=== PATIENT | male | born 1975 | race Caucasian/White ===

== ENCOUNTER 2016-10-04 00:38 | Emergency (ER) | payer BC ==
[2016-10-04] MEDS ORDERED: VALACYCLOVIR HCL 500 MG TABLET PO ONE (02:03)
[2016-10-04] MEDS ORDERED: HYDROCODONE/ACETAMINOPHEN 5-325 MG 6 TAB/DSPK PO PRN (02:03)
--- NOTE | 2016-10-04 02:05 | ER Document Report ---
ED Skin Rash/Insect Bite/Abscs - General Chief Complaint: Rash Stated Complaint: ABDOMINAL/BACK PAIN Time seen by provider: 02:04 Mode of Arrival: Ambulatory Information source: Patient TRAVEL OUTSIDE OF THE [place] IN LAST 30 DAYS: No - HPI Patient complains to provider of: Skin rash/lesion Onset: Yesterday Onset/Duration: Persistent, Worse Quality of pain: Achy, Burning Severity: Mild Pain Level: 2 Skin Character: Erythema, Rash, Vesicular Quality of rash: Painful Identify cause: No Exacerbated by: Denies Relieved by: Denies Similar symptoms previously: No Recently seen / treated by doctor: Yes Notes: Patient is a 41-year-old male with a history of diabetes and high cholesterol who presents to the emergency room complaining of painful erythematous blistering rash to his left abdomen and left back, reports feeling achy pain in the area a few days ago, was actually seen by his primary care provider and diagnosed with a throat infection recently, was started on a Z-Higinio, his diabetes medication was changed to glipizide as well, today he noticed that the rash is blistering, he reports some mild achy pain with that as well, he denies any fevers today, no drainage or discharge, patient admits to having chickenpox as a child Past Medical History - General Information source: Patient - Social History Smoking Status: Never Smoker Chew tobacco use (# tins/day): No Frequency of alcohol use: None Drug Abuse: None Family History: Reviewed & Not Pertinent Patient has suicidal ideation: No Patient has homicidal ideation: No Renal/ Medical History: Denies: Hx Peritoneal Dialysis Review of Systems - Review of Systems Constitutional: No symptoms reported EENT: No symptoms reported Cardiovascular: No symptoms reported Respiratory: No symptoms reported Gastrointestinal: No symptoms reported Genitourinary: No symptoms reported Male Genitourinary: No symptoms reported Musculoskeletal: No symptoms reported Skin: See HPI, Rash Hematologic/Lymphatic: No symptoms reported Neurological/Psychological: No symptoms reported -: Yes All other systems reviewed and negative Physical Exam - Vital signs Vitals: Temp Pulse Resp BP Pulse Ox 97.7 F 85 18 132/79 H 99 10/04/16 00:51 10/04/16 00:51 10/04/16 00:51 10/04/16 00:51 10/04/16 00:51 Interpretation: Normal - General General appearance: Appears well, Alert - HEENT Head: Normocephalic, Atraumatic Eyes: Normal Pupils: PERRL - Respiratory Respiratory status: No respiratory distress Chest status: Nontender Breath sounds: Normal Chest palpation: Normal - Cardiovascular Rhythm: Regular Heart sounds: Normal auscultation Murmur: No - Abdominal Inspection: Normal Distension: No distension Bowel sounds: Normal Tenderness: Nontender Organomegaly: No organomegaly - Back Back: Normal, Nontender - Extremities General upper extremity: Normal inspection, Nontender, Normal color, Normal ROM , Normal temperature General lower extremity: Normal inspection, Nontender, Normal color, Normal ROM , Normal temperature, Normal weight bearing. No: Paulina's sign - Neurological Neuro grossly intact: Yes Cognition: Normal Orientation: AAOx4 Jose Coma Scale Eye Opening: Spontaneous Lovell Coma Scale Verbal: Oriented Lovell Coma Scale Motor: Obeys Commands Lovell Coma Scale Total: 15 Speech: Normal Motor strength normal: LUE, RUE, LLE, RLE Sensory: Normal - Psychological Associated symptoms: Normal affect, Normal mood - Skin Skin Temperature: Warm Skin Moisture: Dry Skin irregularity: Erythema, Rash Location of irregularity: Abdomen, Back Character of irregularity: Vesicular, Erythematous Course - Re-evaluation Re-evalutation: 10/04/16 02:17 Patient with erythematous, raised, vesicular rash to the left abdomen and left back in 1 dermatome consistent with varicella zoster 10/04/16 03:48 Patient's rash consistent with very was softer, he was started on valacyclovir and provided with pain medication, advised to follow-up with a primary care provider in 2-3 days or return if symptoms worsen, patient acknowledges understanding and agreement with this plan - Vital Signs Vital signs: Temp Pulse Resp BP Pulse Ox 97.6 F 87 16 125/86 H 98 10/04/16 02:29 10/04/16 02:22 10/04/16 02:22 10/04/16 02:22 10/04/16 02:22 Discharge - Discharge Clinical Impression: Varicella zoster Condition: Stable Disposition: HOME, SELF-CARE Instructions: Shingles ([facility]) Additional Instructions: Follow up with your primary care provider in one to 2 days. Return to the emergency room immediately if symptoms worsen or any additional concerns. Prescriptions: Hydrocodone/Acetaminophen [Hydrocodon-Acetaminophen 5-325] 1 each PO Q6 #20 tablet Valacyclovir HCl [Valacyclovir] 1,000 mg PO TID #42 tablet Referrals: KODY NOLASCO MD [Primary Care Provider] - Follow up as needed
[2016-10-04 02:29] VITALS: BP 125/86
== END 2016-10-04 02:29 | disposition home or self-care (01) ==
LOC: ER 00:38
DX: B01.9 Varicella without complication (principal); R21 Rash and other nonspecific skin eruption; M54.9 Dorsalgia, unspecified; E11.9 Type 2 diabetes mellitus without complications; Z79.84 Long term (current) use of oral hypoglycemic drugs
CPT/HCPCS: 99282